=== PATIENT | female | born 1985 | race Caucasian/White ===

== ENCOUNTER 2016-11-19 17:56 | Emergency (ER) | payer OTHER ==
[2016-11-19] MEDS ORDERED: SODIUM CHLORIDE 0.9% 500 ML IV STA (18:34)
[2016-11-19] MEDS ORDERED: LORazepam 2 MG/ML SYRINGE IV STA (18:34)
--- NOTE | 2016-11-19 18:52 | ED ---
General Adult HPI - General Chief complaint: Seizure Stated complaint: Seizure,fall Time Seen by Provider: 11/19/16 18:23 Source: patient, EMS, RN notes reviewed Mode of arrival: EMS Limitations: no limitations - History of Present Illness Initial comments: Chief complaint and history of present illness a 31-year-old female who is at [place] recovering from alcohol abuse. She's been there 6 days. Patient received Ativan on her first day there. And then for the past 4 days has not needed. She does have a history of seizures with alcohol withdrawal and severe for than 4 months. She reports all seizures happen with alcohol withdrawal. Not on any medications for seizures. She also presents with a fever of 100.4. No specific focus or reason for this. Patient also has a laceration between her eyes U shaped laceration measuring approximately 3 cm. Patient arrived with a Hartland collar she wanted removed immediately. Neurological examination is performed first she had no numbness no tingling no pain to the neck and no numbness or tingling to the arms with good manuscript editor and function. It was removed at her request. - Related Data Home Medications Medication Instructions Recorded Confirmed Acetaminophen Tab [Tylenol Tab] 650 mg PO Q4H PRN 11/19/16 11/19/16 Calcium/Magnesium 2 tab PO TID PRN 11/19/16 11/19/16 Chlorpheniramine Maleate 4 mg PO Q4H PRN MDD 4 doses 11/19/16 11/19/16 [Chlor-Trimeton] Ibuprofen [Motrin] 600 mg PO Q6HR PRN 11/19/16 11/19/16 LORazepam [Ativan] 1 mg PO TID PRN 11/19/16 11/19/16 Loperamide [Imodium] 4 mg PO QID PRN MDD 8 capsules 11/19/16 11/19/16 Multivitamins, Thera [Multivitamin 1 tab PO DAILY 11/19/16 11/19/16 (formulary)] Ondansetron HCl [Zofran] 8 mg PO Q6H PRN 11/19/16 11/19/16 Thiamine [Vitamin B-1] 100 mg PO DAILY 11/19/16 11/19/16 cloNIDine HCL [Catapres] 0.1 mg PO Q4H PRN 11/19/16 11/19/16 traZODone HCL 50 mg PO HS 11/19/16 11/19/16 Allergies Allergy/AdvReac Type Severity Reaction Status Date / Time No Known Allergies Allergy Verified 11/19/16 18:50 Review of Systems ROS Statement: Those systems with pertinent positive or pertinent negative responses have been documented in the HPI. Review of systems. No headache no visual acuity changes denies any neck pain. Denies numbness or tingling to her arms were no apparent dysfunction. Denies chest pain shortness breath GI/ problems. Denies any recent having a fever. All systems reviewed. Past medical problems significant for alcohol abuse. She 's had for seizures all of which have been related to alcohol withdrawal. Surgeries include left shoulder surgery. Family history mother is no alcoholic. Patient does smoke. Alcohol use is abusive. She started when she was 17 years old. ROS Other: All systems not noted in ROS Statement are negative. Past Medical History Additional Past Medical History / Comment(s): Alcohol abuse History of Any Multi-Drug Resistant Organisms: None Reported Past Surgical History: Orthopedic Surgery Past Psychological History: No Psychological Hx Reported Smoking Status: Current some day smoker Past Alcohol Use History: Abuse Past Drug Use History: None Reported General Exam - General Exam Comments Initial Comments: General: The patient is awake and alert, in no distress, and does not appear acutely ill. had a seizure at [facility] where she is rehabilitating from alcohol use. Patient has a curvilinear laceration between her eyes. Eye: Pupils are equal, round and reactive to light, extra-ocular movements are intact ; there is normal conjunctiva bilaterally. No signs of icterus. Ears, nose, mouth and throat: There are moist mucous membranes and no oral lesions. Neck: The neck is supple, there is no tenderness . The patient arrived with a Hartland collar on but she insisted it being removed. Neurological examination done before it was removed showed no evidence of any focal or lateralizing findings. Denied any neck pain no numbness or tingling to her upper extremities. Cardiovascular: There is a regular rate and rhythm. No murmur, rub or gallop is appreciated. Respiratory: Lungs are clear to auscultation, respirations are non-labored, breath sounds are equal. No wheezes, stridor, rales, or rhonchi. Gastrointestinal: Soft, non-distended, non-tender abdomen without masses or organomegaly noted. There is no rebound or guarding present. No CVA tenderness. Bowel sounds are unremarkable. Back: There is no tenderness to palpation in the midline. There is no obvious deformity. No rashes noted. Musculoskeletal: Normal ROM, no tenderness, There is no pedal edema. There is no calf tenderness or swelling. Sensation intact. Pulses equal bilaterally 2+. Neurological: CN II-XII intact, There are no obvious motor or sensory deficits. Coordination appears grossly intact. Speech is normal. No focal or lateralizing findings Skin: Skin is warm and dry and no rashes or lesions are noted. Psychiatric: Cooperative, appropriate mood & affect, normal judgment. Limitations: no limitations Course Vital Signs 11/19/16 11/19/16 11/19/16 17:57 19:19 20:36 Temperature 100.4 F H 98.2 F 98.2 F Pulse Rate 94 90 89 Respiratory 18 20 20 Rate Blood Pressure 148/102 120/63 116/78 O2 Sat by Pulse 99 98 98 Oximetry Procedures - Procedures Initial comment: Procedure; laceration to the forehead measuring 4 cm. Comp located repair 2 layers repaired. Sterile technique used to clean the area explored no foreign bodies noted. Wound edges were approximated using 5-0 Vicryl and 6-0 nylon 5 Vicryl were placed and 12 nylon were placed in both a simple and mattress pattern. Wound edges were covered then with bacitracin. Mild pressure applied. Sutures are removed in 5 days. Steri-Strips to be applied at that time. Dr. Quigley Medical Decision Making - Medical Decision Making Medical decision-making. Initially the patient refused CAT scan of her head and cervical spine. And then she said that she spoke to her who insisted she do that she is now agreeable. The patient will have a laceration on her forehead repaired. Labs show white count of 3.3 hemoglobin 11.6 with hematocrit of 33 and INR 1.0, potassium 3.3 glucose 105. Patient will receive her tetanus shot. Final disposition after CAT scan reports by Dr. Garcia. - Lab Data Result diagrams: 11/19/16 18:25 11/19/16 18:25 Lab Results 11/19/16 11/19/16 11/19/16 Range/Units 18:25 18:25 18:25 WBC 3.3 L (3.8-10.6) k/uL RBC 3.21 L (3.80-5.40) m/uL Hgb 11.6 (11.4-16.0) gm/dL Hct 33.6 L (34.0-46.0) % MCV 104.8 H (80.0-100.0) fL MCH 36.0 H (25.0-35.0) pg MCHC 34.4 (31.0-37.0) g/dL RDW 14.5 (11.5-15.5) % Plt Count 113 L (150-450) k/uL Neutrophils % (Manual) 61.0 % Lymphocytes % (Manual) 21.0 % Monocytes % (Manual) 16.0 % Eosinophils % (Manual) 2.0 % Neutrophils # (Manual) 2.0 (1.3-7.7) k/uL Lymphocytes # (Manual) 0.7 L (1.0-4.8) k/uL Monocytes # (Manual) 0.5 (0-1.0) k/uL Eosinophils # (Manual) 0.1 (0-0.7) k/uL Nucleated RBCs 0 (0-0) /100 WBC Macrocytosis Moderate PT 10.3 (9.0-12.0) sec INR 1.0 (<1.1) Sodium 137 (137-145) mmol/L Potassium 3.3 L (3.5-5.1) mmol/L Chloride 105 (98-107) mmol/L Carbon Dioxide 23 (22-30) mmol/L Anion Gap 9 mmol/L BUN 8 (7-17) mg/dL Creatinine 0.57 (0.52-1.04) mg/dL Est GFR (MDRD) Af Amer >60 (>60 ml/min/1.73 sqM) Est GFR (MDRD) Non-Af >60 (>60 ml/min/1.73 sqM) Glucose 105 H (74-99) mg/dL Calcium 7.6 L (8.4-10.2) mg/dL Total Bilirubin 1.4 H (0.2-1.3) mg/dL AST 75 H (14-36) U/L ALT 47 (9-52) U/L Alkaline Phosphatase 117 (38-126) U/L Total Protein 6.3 (6.3-8.2) g/dL Albumin 3.8 (3.5-5.0) g/dL Disposition Clinical Impression: Facial laceration, Seizure due to alcohol withdrawal Disposition: OTHER INSTITUTION NOT DEFINED Condition: Fair Instructions: Abuse of Alcohol (ED), Alcohol Withdrawal (ED), Care For Your Stitches (ED), Laceration (ED), Facial Laceration (ED) - Out of Hospital Transfer - Req. Specs Out of Hospital Transfer - Requested Specifics: Other Non-Acute (Patient will be transferred back to [facility].)
[2016-11-19] MEDS ORDERED: SODIUM CHLORIDE 0.9% 1,000 ML with MVI, ADULT NO.4 WITH VIT K 10 ML, THIAMINE 100 MG, F... IV ONE ×4 (19:00)
[2016-11-19 19:04] LABS: CH 35.7; CHCM 34.2; HCT 33.6 % (34.0-46.0); HDW 2.74; HGB 11.6 gm/dL (11.4-16.0); MCHC 34.4 g/dL (31.0-37.0); MCV 104.8 fL (80.0-100.0); Macrocytosis Moderate; Mean Platelet Volume 8.4; Prothrombin Time 10.3 sec (9.0-12.0); RBC 3.21 m/uL (3.80-5.40); RDW 14.5 % (11.5-15.5); WBC 3.3 k/uL (3.8-10.6); WBC (Perox) 3.54
[2016-11-19 19:06] LABS: ALT 47 U/L (9-52); AST 75 U/L (14-36); Alkaline Phosphatase 117 U/L (38-126); Anion Gap 9 mmol/L; Blood Urea Nitrogen 8 mg/dL (7-17); Calcium 7.6 mg/dL (8.4-10.2); Carbon Dioxide 23 mmol/L (22-30); Chloride 105 mmol/L (98-107); Glucose 105 mg/dL (74-99); Non-African American GFR(MDRD) >60 (>60 ml/min/1.73 sqM); Potassium 3.3 mmol/L (3.5-5.1); Sodium 137 mmol/L (137-145); Total Bilirubin 1.4 mg/dL (0.2-1.3); Total Protein 6.3 g/dL (6.3-8.2)
[2016-11-19 20:39] LABS: Add Differential Manual Differential
[2016-11-19 20:42] LABS: Nucleated Red Blood Cells 0 /100 WBC (0-0); Total Cells Counted 100
[2016-11-19] MEDS ORDERED: DIPH,PERTUS(ACELL)TETVAC-LF 0.5 ML VIAL IM ONE (21:51)
--- NOTE | 2016-11-19 21:59 | CT ---
EXAMINATION TYPE: CT brain matthew rosales con DATE OF EXAM: 11/19/2016 9:53 PM COMPARISON: NONE HISTORY: Seizure, fall and frontal injury. CT DLP: 1236.[address] Brain: Unenhanced CT of the brain was performed. The ventricles, basal cisterns and sulci overlying the cerebral convexities demonstrate a normal appe arance. There is no evidence for intracranial hemorrhage or sulcal effacement. No mass effects are seen. If symptoms persist consider MRI. Osseous calvarium is intact. Chronic sinusitis. IMPRESSION: No acute intracranial process. CT Cervical Spine: Unenhanced CT of the cervical spine was performed with bone and soft tissue window settings submitted . Coronal and sagittal reconstruction is obtained. There is normal alignment and prevertebral soft tissues. I do not see evidence for fracture or sublu xation. No significant degenerative changes are present. The lung apices are clear. IMPRESSION: No evidence for acute fracture or subluxation of the cervical spine.
[2016-11-19 22:45] VITALS: BP 123/98; PULSE 99; RESP 16; TEMP 97.9
== END 2016-11-19 22:45 | disposition other institution (70) ==
LOC: EC 17:56
DX: S01.81XA Laceration without foreign body of other part of head, initial encounter (principal); R56.9 Unspecified convulsions; F10.239 Alcohol dependence with withdrawal, unspecified; Z23 Encounter for immunization; F17.200 Nicotine dependence, unspecified, uncomplicated; Z79.899 Other long term (current) drug therapy; W07.XXXA Fall from chair, initial encounter
CPT/HCPCS: 99284; 96365; 96366 ×2; 96375; 90471; 12052; 36415; 80053; 85025; 85610; 72125; 70450; 90715; J2060; J3411